=== PATIENT | male | born 1960 | race Two or more races ===

== ENCOUNTER 2016-12-08 17:09 | Emergency (ER) | payer OTHER ==
[~2016-12-08] VITALS: Ht 162.6 cm; Wt 63.0 kg
--- NOTE | ~2016-12-08 | CT2 ---
[facility] A Service of [facility] RADIOLOGY TEXT RESULTS PATIENT: MIHIR GR LOCATION: [facility] : 62 UNIT #: [id number] AGE: [address]: Jorge Rice MD SEX: M ORDER DR: [id number] [facility] [address] [place], [place] [address] [id number] MR#: [id number] Acc #: [id number] NAME: MIHIR GR : 1960 SEX: M STUDY DATE/TIME: 12/08/2016 23:54 UNIT: [facility] ROOM: STUDY DESCRIPTION: CT Abd and Pelv W Cont Attending Physician: Jorge Rice M.D. Referring Physician: No Primary Care Physician Ordering Physician: Che Rashid M.D. Primary Care Physician: No Primary Care Physician MEDICAL IMAGING REPORT This report is preliminary unless electronic signature is present EXAM CT abdomen and pelvis with contrast, 12/08/2016. HISTORY 56-year-old male in the ED complaining of new onset generalized abdomen pain with nausea, vomiting, and diarrhea beginning earlier this afternoon. TECHNIQUE CT examination of the abdomen and pelvis with oral and IV contrast. This CT exam was performed with one or more of the following radiation dose reduction techniques: automatic exposure control, adjustment of mA and/or kV according to patient size, and iterative reconstruction. FINDINGS ABDOMEN FINDINGS: Mild diffuse hepatic steatosis. Liver, pancreas, and spleen are otherwise negative. No gallbladder distension or bile duct dilatation. Both kidneys are negative with no evidence of urinary obstruction. Small bowel and colon are normal in caliber and appearance. The appendix is normal. PELVIS FINDINGS: Small left inguinal hernia containing pelvic fat. Urinary bladder, prostate, and rectum are within normal limits. IMPRESSION 1. No acute abnormality within the abdomen or pelvis. 2. Normal appendix. 3. Mild hepatomegaly and diffuse hepatic steatosis. 4. Normal appendix. 5. Small left inguinal hernia containing pelvic fat. [facility] A Service of [facility] RADIOLOGY TEXT RESULTS PATIENT: MIHIR GR LOCATION: [facility] : 62 UNIT #: [id number] AGE: [address]: Jorge Rice MD SEX: M ORDER DR: Dictated by... Bassem Flores M.D. THIS IS AN ELECTRONICALLY VERIFIED REPORT Bassem Flores M.D. at 12/09/2016 9:57 PM RGW/dl TD: 12/09/2016 10:11 JOB #: [id number] MEDICAL IMAGING REPORT Page 1 of 1 COPY
[~2016-12-08 17:09] MED LIST: MEDROL DOSEPAK4 MG DOB
[2016-12-08 18:04] LABS: BASOPHIL% 0.2 % (0-2.5); EOSINOPHIL# 0.1 X10e3 (0-0.7); EOSINOPHIL% 0.4 % (0.0-7.0); HEMATOCRIT 56.4 % (38.0-50.0); HEMOGLOBIN 18.7 gm/dL (13.0-16.0); LYMPHOCYTE# 0.3 X10e3 (1.0-3.5); LYMPHOCYTE% 2.1 % (17.0-45.0); MEAN CELL VOLUME 88.1 FL (83-96); MEAN CORPUSCULAR HEMOGLOBIN 29.1 PG (28-34); MEAN CORPUSCULAR HGB CONC 33.1 g/dL (30-36); MEAN PLATELET VOLUME 9.9 FL (6.5-11.5); MONOCYTE# 0.2 X10e3 (0-1.0); MONOCYTE% 1.3 % (3.0-12.0); NEUTROPHIL# 14.3 X10e3 (1.5-7.1); PLATELET COUNT 239 X10e3 (140-420); RED CELL DISTRIBUTION WIDTH 14.8 % (11.0-15.5); WHITE BLOOD COUNT 14.9 X10e3 (4.0-10.5)
[2016-12-08 18:06] LABS: DIFF IND YES
[2016-12-08 18:17] LABS: PLATELET ESTIMATE NORMAL (NORMAL)
[2016-12-08 18:26] LABS: ALBUMIN SERUM 5.1 g/dL (3.5-5.0); BILIRUBIN, DIRECT 0.1 mg/dL (0.0-0.2); BILIRUBIN,INDIRECT 0.3 mg/dL (0.0-0.9); BILIRUBIN,TOTAL 0.4 mg/dL (0.2-2.0); BUN/CREATININE RATIO 13.07; CALCIUM SERUM 9.9 mg/dL (8.4-10.2); CREATININE SERUM 1.3 mg/dL (0.6-1.4); GLOM FILT RATE Estimated 61.4 mL/min (>60); POTASSIUM 4.3 mmol/L (3.5-5.1)
[2016-12-08 18:30] LABS: URINE SOURCE CLEAN CATCH
[2016-12-08 18:43] LABS: URINE APPEARANCE CLOUDY; URINE BILIRUBIN NEG (NEG); URINE BLOOD 4+ (NEG); URINE COLOR AMBER; URINE GLUCOSE NORM (NORM); URINE KETONE NEG (NEG); URINE LEUKOCYTE ESTERASE 3+ (NEG); URINE NITRATE NEG (NEG); URINE PROTEIN 3+ (NEG); URINE UROBILINOGEN NORM (NORM)
[2016-12-08 19:09] LABS: CULTURE INDICATED? YES; URINE AMORPHOUS SEDIMENT AMORP PHOSPHATES; URINE BACTERIA AUWI 2+ (NEGATIVE)
== END 2016-12-09 01:09 | disposition home or self-care (01) ==
LOC: CED 17:09 → EDBD 17:09 → CED 21:13
PROVIDERS: Emergency Medicine
DX: N30.00 Acute cystitis without hematuria (principal); E11.9 Type 2 diabetes mellitus without complications; I10 Essential (primary) hypertension
CPT/HCPCS: 36415; 74177; 80048; 80076; 81003; 83690; 85025; 87086; 87088; 87186; 96361; 96372; 96374; 96375; 99284; J0500; J2270; J2405; Q9967